=== PATIENT | male | born 1985 ===

== ENCOUNTER 2024-10-08 16:39 | Emergency (ER) | payer SELFPAY ==
[2024-10-08 16:40] VITALS: BP 149/100; PULSE 100; RESP 16; TEMP 36.4; O2SAT 100
--- NOTE | 2024-10-08 19:57 | ED_ITS ---
HPI - Extremity Problem General Chief complaint: Extremity Problem,Nontraumatic Stated complaint: L MEDINA INJURY THROAT CONGESTION Time Seen by Provider: 10/08/24 19:57 Source: patient Mode of arrival: ambulatory Limitations: no limitations History of Present Illness HPI Narrative: Patient presents with 2 complaints. He has been having throat congestion and some nasal congestion and a little bit of rhinorrhea. He has felt warm and flushed this around his head but does not know if he has had a fever. He feels a bit of sinus pressure. No sore throat. No underlying respiratory conditions. He has had a raspy cough. Denies ear pain or headache. In addition, patient thinks that he might have struck his distal left medina either on the better the wall. He states that he is having pain particularly worse with walking applying pressure to his foot. He has not yet taken anything for pain. He states he walks a lot takes the bus and this has aggravated it. Related Data Home Medications Medication Instructions Recorded Confirmed losartan 50 mg tablet 50 mg PO DAILY 10/08/24 10/08/24 Allergies Allergy/AdvReac Type Severity Reaction Status Date / Time No Known Allergies Allergy Verified 10/08/24 16:41 Exam Narrative: GENERAL: Well-appearing, well-nourished, and in no acute distress. HEAD: Normocephalic, atraumatic. EYES: Non injected, non icteric ENT: Nares clear, no rhinorrhea or epistaxis. Mildly erythematous but without cobblestoning or polyps or septal hematoma. Posterior oropharynx mildly erythematous with some tonsillar hypertrophy but no exudate. NECK: Supple. No lymphadenopathy. CHEST: Speaking in full sentences. No respiratory distress. HEART: Regular rate and rhythm. ABDOMEN: Soft, nondistended. EXTREMITIES: Normal range of motion. No lower extremity edema. Left foot is warm and well perfused. Mild tenderness to palpation superior to the left lateral malleolus with a small palpable bump in the tissue but without overlying erythema or other skin changes. SKIN: Warm, dry, no rash. NEURO: No focal deficits. Alert and oriented x3. Able to demonstrate 5/5 strength with left ankle dorsiflexion, plantar flexion, inversion, and eversion. PSYCH: Normal mood and affect. Course Vital Signs Vital signs: Vital Signs Temperature 97.5 F L 10/08/24 16:40 Pulse Rate 100 10/08/24 16:40 Respiratory Rate 16 10/08/24 16:40 Blood Pressure 149/100 H 10/08/24 16:40 Pulse Oximetry 100 10/08/24 16:40 Temperature 97.5 F L 10/08/24 16:40 Pulse Rate 100 10/08/24 16:40 Respiratory Rate 16 10/08/24 16:40 Blood Pressure 149/100 H 10/08/24 16:40 Pulse Oximetry 100 10/08/24 16:40 MDM - Extremity (Nontraumatic) MDM Narrative Medical decision making narrative: Patient presents report of throat/sinus/nasal congestion as well as a left medina injury. In the emergency department she is afebrile with vital signs notable for hypertension. Centor Score 1 point (for tonsillar swelling): 5-10% likelihood of strep. No further testing or antibiotics. Orders were placed but before they could be carried out was noted that patient had left the emergency department. Therefore, patient left before completing treatment Differential Diagnosis Differential diagnosis: Likely other (Acute viral process, sinusitis, considered strep pharyngitis, possible high-grade ankle sprain; medina splint) Discharge Plan Discharge Clinical Impression: Congestion of upper airway Patient Disposition: Elopement After Seen by Prov Condition: Stable Prescriptions: No Action losartan 50 mg Tablet 50 mg PO DAILY Follow-up/Referrals: PHYSICIAN,PRINCIPAL CLERK [Primary Care Provider] -
== END 2024-10-08 21:00 | disposition left against medical advice (07) ==
LOC: ANHED 20:49
PROVIDERS: Emergency Provider Student in an Organized Health Care Education/Training Program
DX: J98.8 Other specified respiratory disorders (principal)
CPT/HCPCS: 99281